=== PATIENT | female | born 1955 | race Caucasian/White ===

== ENCOUNTER 2019-05-01 08:11 | Day surgery (SDC) | payer OTHER ==
[~2019-05-01] VITALS: Ht 170.2 cm; Wt 67.6 kg
[~2019-05-01 08:11] MED LIST: ATOR20 PO; EUTHYROX50 MCG PO
--- NOTE | 2019-05-01 08:56 | NUR ---
05/01/19 0856 Emily Ybarra History, Chart, Medications and Allergies reviewed before start of procedure. PATIENT CONFIRMS NPO STATUS AND AGREES WITH SCHEDULED PROCEDURE. MONITOR INTACT WITH CONTINUOUS PULSE OXIMETRY AND INTERMITTENT BP. O2 VIA N/C INTACT THROUGHOUT SEDATION/PROCEDURE. 3-LEAD EKG REVIEWED WITH PHYSICIAN PRIOR TO START OF PROCEDURE.PATIENT DETERMINED TO BE ASA APPROPRIATE FOR PROPOFOL SEDATION PRIOR TO START OF PROCEDURE BY DR. RAMIREZ.
--- NOTE | 2019-05-01 08:57 | NUR ---
Ambulatory in Day Surgery History, Chart, Medications and Allergies reviewed before start of procedure.Patient confirms NPO status and agrees with scheduled surgery. Patient states colon prep results clear.Lungs clear T/O to Auscultation. Patient States Post-Procedure ride home has been arranged WITH SON.
--- NOTE | 2019-05-01 09:49 | NUR ---
Discharge instructions reviewed with patient. Patient verbalizes understanding. Copy given to patient to take home. PT SON IS ON HIS WAY, RIDE HOME. PT STATES SHE WAS UNDER THE IMPRESSION THAT SHE WOULD GO TO HER SONS FOR A FEW HOURS AND THEN DRIVE HERSELF HOME. DR. RAMIREZ WAS PRESENT DURING THIS CONVERSATION. I EXPLAINED TO HER THAT SHE IS NOT TO DRIVE FOR 24 HOURS BECAUSE OF THE SEDATION MEDICATION THAT WAS GIVEN. EXPLAINED REASON WHY. PT STATES SHE WILL "FIGURE IT OUT." I ENCOURAGED PT SHE SHOULD HAVE HER SON DRIVE HER DIRECTLY HOME. Discharged via wheelchair to private car for ride home.
== END 2019-05-01 10:00 | disposition home or self-care (01) ==
LOC: ORSCMMR 08:11 → ORD 09:00 → ORSCMMR 10:00
PROVIDERS: Internal Medicine Gastroenterology
PROC: 0DBN8ZX Excision of Sigmoid Colon, Via Natural or Artificial Opening Endoscopic, Diagnostic (ICD-10-PCS; principal; 2019-05-01 09:00)
PROC: 0DBH8ZX Excision of Cecum, Via Natural or Artificial Opening Endoscopic, Diagnostic (ICD-10-PCS; principal; 2019-05-01 09:00)
DX: Z12.11 Encounter for screening for malignant neoplasm of colon (principal); D12.0 Benign neoplasm of cecum; K63.5 Polyp of colon; K57.30 Diverticulosis of large intestine without perforation or abscess without bleeding; K64.8 Other hemorrhoids; E03.9 Hypothyroidism, unspecified; E78.00 Pure hypercholesterolemia, unspecified; Z79.899 Other long term (current) drug therapy
CPT/HCPCS: 88305; J2704; J7120

== ENCOUNTER 2025-02-09 08:20 | Day surgery (SDC) | payer OTHER ==
[2025-02-09] VITALS (10 sets, daily range): BP systolic 94–132; BP diastolic 57–83
[~2025-02-09 08:20] MED LIST changes: +Lisinopril2.5 MG PO; +METO25ER PO; +PRAV20 PO
--- NOTE | 2025-02-09 10:38 | NUR ---
Ambulatory in Day Surgery. History, Chart, Medications and Allergies reviewed before start of procedure. Patient confirms NPO status and agrees with scheduled surgery. Patient States Post-Procedure ride home has been arranged. NECKLACE REMOVED. PLACED IN BAGGIE WITH PATIENTS NAME AND PLACED IN PATIENTS PURSE.
--- NOTE | 2025-02-09 11:50 | NUR ---
02/09/25 1150 Varghese Jackson CONFIRMED AND REVIEWED H&P, MEDCICATIONS, ALLERGIES, MEDICAL HISTORY, RESPIRATORY HISTORY, VITAL SIGNS, 3-LEAD EKG, CONSENTS, AND PHYSICIAN ORDERS. PATIENT CONFIRMS NPO STATUS AND AGREES WITH SCHEDULED PROCEDURE. MONITOR INTACT WITH CONTINUOUS PULSE OXIMETRY, CAPNOGRAPHY, 3-LEAD EKG, INTERMITTENT BP. SUPPLEMENTAL O2 TO BE TITRATED THROUGHOUT PROCEDURE TO MAINTAIN O2 SATURATION ABOVE 90%. PATIENT DETERMINED TO BE ASA APPROPRIATE FOR PROPOFOL SEDATION PRIOR TO START OF PROCEDURE BY DR. RAMIREZ
--- NOTE | 2025-02-09 12:38 | NUR ---
Ambulatory in Day Surgery WITH STEADY GAIT. Discharge instructions reviewed with patient. Patient verbalizes understanding. Copy given to patient to take home. ALL BELONGINGS RETURNED TO PT INCLUDING PURSE. Discharged via wheelchair to private car for ride home WITH FRIEND BY DISCHARGE VOLUNTEER.
== END 2025-02-09 12:39 | disposition home or self-care (01) ==
LOC: ORSCMMR 08:20 → ORD 09:15 → ORSCMMR 12:39
PROVIDERS: Internal Medicine Gastroenterology
PROC: 0DJD8ZZ Inspection of Lower Intestinal Tract, Via Natural or Artificial Opening Endoscopic (ICD-10-PCS; principal; 2025-02-09 09:15)
DX: Z12.11 Encounter for screening for malignant neoplasm of colon (principal); Z86.0101 Personal history of adenomatous and serrated colon polyps; I10 Essential (primary) hypertension; E78.00 Pure hypercholesterolemia, unspecified; E03.9 Hypothyroidism, unspecified; Z79.899 Other long term (current) drug therapy
CPT/HCPCS: J2704; J7120